=== PATIENT | female | born 1955 | race Two or more races ===

== ENCOUNTER 2025-02-09 21:33 | Emergency (ER) | payer OTHER, MEDICAID ==
[~2025-02-09] VITALS: Ht 162.6 cm; Wt 50.0 kg
--- NOTE | 2025-02-09 22:13 | ED.PDOC ---
History of Present Illness HPI Comments 69 y/o underweight F is [id number] daughter for c/c of runny nose and cough x2 days. No known recent sick contacts. Only history of anxiety and previous stroke in July, with residual left-sided deficits. No reported fever, chills, nausea, vomiting, or further acute symptoms. 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 Family History Family History: Unknown Social History Smoker: Non-Smoker Alcohol: Denies ETOH Use Drugs: Denies Drug Use Lives In: Home All Other Systems: Reviewed and Negative (Comprehensive systems review obtained and negative except for what is stated in the HPI.) Physical Exam General Appearance: No Apparent Distress, Thin HEENT: Normal ENT Inspection, Pharynx Normal, TMs Normal Neck: Full Range of Motion, Non-Tender, Normal, Normal Inspection Respiratory: Chest Non-Tender, Lungs Clear, No Accessory Muscle Use, No R espiratory Distress, Normal Breath Sounds Cardiovascular: No Edema, No JVD, No Murmur, No Gallop, Normal Peripheral Pulses, Regular Rate/Rhythm Breast Exam: Deferred Gastrointestinal: No Organomegaly, Non Tender, No Pulsatile Mass, Normal Bowel Sounds, Soft Genitalia: Deferred Pelvic: Deferred Rectal: Deferred Extremities: No calf tenderness, Normal capillary refill, Normal inspection, Normal range of motion, Non-tender, No pedal edema Musculoskeletal : Apperance: Normal Neurologic: Alert, internal combustion engineer II-XII nml as Tested, Motor Weakness (residual left sided deficits from previous stroke ), Normal Affect, Normal Mood, No Sensory Deficits Cerebellar Function: Normal Reflexes: Normal Skin: Dry, Normal Color, Warm Lymphatic: No Adenopathy Was a procedure done? Was a procedure done?: No Differential Dx Considerations may include: viral, URI, UTI, PNA, among others X-Ray, Labs, Meds, VS Vital Signs Date Time Temp Pulse Resp B/P (MAP) Pulse Ox O2 Delivery O2 Flow Rate FiO2 02/10/25 00:04 98.1 84 18 161/112 (128) 95 98.1 02/09/25 21:37 97.6 76 16 150/96 95 97.6 Lab Test 02/09/25 23:20 Range/Units Influenza Type A Antigen Negative Negative Influenza Type B Antigen Negative Negative SARS-CoV-2 Antigen (Rapid) Negative NEGATIVE Time of 1ST Reevaluation: 22:30 Reevaluation 1ST: Unchanged Patient Education/Counseling: Diagnosis, Treatment Family Education/Counseling: Diagnosis, Treatment Comments Patient is well-appearing, has viral symptoms. However, her chest x-ray is unremarkable, she tested negative for influenza and COVID. Her oxygenation and vital signs are all normal. She is stable for discharge with nonspecific viral syndrome Additional Information Previous history reviewed: N/A The following tests were ordered, and results were reviewed by me: CXR and Covid and flu-swabs Additional Information was gathered from interviewing the following independent historians: daughter I reviewed and agreed with the following test results read by other providers: CXR I discussed treatment and results with medical personnel and: patient and daughter SEPSIS Sepsis Screen Date sepsis recognized/suspect: Feb 09, 2025 Time Sepsis recognized/suspect: 2136 Recent Procedure: No On Antibiotic Therapy: No Respiratory Rate >20: No Heart Rate >90: No Temp<36 C (96.8 F) or >38.3 C: No SBP <90 or MAP <65 mmHG: No New Acute Mental Status Change: No Is the patient on CPAP, BIPAP,: No Physician Orders Chest Xray 1 View (02/09/25 22:03) Vital Signs Date Time Temp Pulse Resp B/P (MAP) Pulse Ox O2 Delivery O2 Flow Rate FiO2 02/10/25 00:04 98.1 84 18 161/112 (128) 95 98.1 02/09/25 21:37 97.6 76 16 150/96 95 97.6 Departure 1 Departure Time of Disposition: 01:01 Impression: Primary Impression: Viral syndrome Disposition: 01 HOME / SELF CARE / HOMELESS Condition: Stable Discharged With: Self, Relative Critical Care Note Critical Care Time?: No Stability Stability form required: No Heart Score Heart Score: Heart Score Response (Comments) Value History N/A 0 EKG N/A 0 Age N/A 0 Risk Factors N/A 0 Troponin N/A 0 Total 0 I personally scribed for QUIN WARD MD ([email or web address]) on 02/09/25 at 22:12. E lectronically submitted by Dwaine Razo ([email or web address]). QUIN WARD MD Feb 09, 2025 22:12
--- NOTE | 2025-02-09 23:13 | DVH ---
CHEST RADIOGRAPH INDICATION: cough TECHNIQUE: Single frontal view of the chest was obtained COMPARISON: XR CHEST 1 VIEW on DOS: 08/02/23 FINDINGS: Lungs and pleural spaces are clear. Cardiac silhouette is mildly enlarged. Bones and soft tissues demonstrate no significant abnormality. IMPRESSION: Cardiomegaly.
[2025-02-10 00:40] LABS: COVID19 ANTIGEN SOFIA FIA NEGATIVE (NEGATIVE)
[2025-02-10 02:04] VITALS: BP 158/98; PULSE 118; TEMP 97.6; O2SAT 96
[2025-02-10 02:10] VITALS: RESP 18
== END 2025-02-10 02:14 | disposition home or self-care (01) ==
LOC: ER 21:33
DX: B34.9 Viral infection, unspecified (principal); F41.9 Anxiety disorder, unspecified; Z88.0 Allergy status to penicillin; Z20.822 Contact with and (suspected) exposure to COVID-19
CPT/HCPCS: 36415; 71045; 87426; 87804